=== PATIENT | male | born 1990 | race Caucasian/White ===

== ENCOUNTER 2016-11-04 04:57 | Emergency (ER) | payer OTHER ==
[~2016-11-04] VITALS: Ht 167.6 cm; Wt 61.1 kg
[2016-11-04] MEDS ORDERED: ALBU1.25 NEB (05:17)
[2016-11-04 05:59] LABS: BLOOD UREA NITROGEN 15 mg/dL (7-18)
[2016-11-04 06:03] LABS: IS PT STATUS REG ER OR PRE ER? YES
[2016-11-04 06:37] VITALS: BP 146/92
== END 2016-11-04 06:40 | disposition home or self-care (01) ==
LOC: ED 05:28
DX: R07.89 Other chest pain (principal)
CPT/HCPCS: 36415; 71010; 80048; 82040; 84436; 84443; 84484; 85025; 93005; 99285

== ENCOUNTER 2017-04-14 09:05 | Day surgery (SDC) | payer OTHER ==
[~2017-04-14] VITALS: Ht 167.6 cm; Wt 62.1 kg
[~2017-04-14 09:05] MED LIST: ALBU1.25 NEB; CEFAZOLIN 1,000 MG ONE; DEXAMETHASONE 4 MG/ML, 1ML ONE; FENTANYL PF 100 MCG/2ML ONE; GLYCOPYRROLATE 0.2MG/1ML, 5ML ONE; MIDAZOLAM 1 MG/ML, 2ML ONE; NEOSTIGMINE 1 MG/ML, 10ML ONE; ONDANSETRON 2MG/ML, 2ML ONE; PROPOFOL 10 MG/ML, 20ML ONE; ROCURONIUM 10 MG/ML,10ML ONE; SUCCINYLCHOLINE 20 MG/ML, 10ML ONE
[2017-04-14] MEDS ORDERED: EPINEPHRINE 1 MG/ML, 1ML ONE (09:18)
[2017-04-14] MEDS ORDERED: BUPIVACAINE/PF 0.5% ONE (09:18)
[2017-04-14] MEDS ORDERED: LIDOCAINE 1%, 2ML ONE (09:21)
[2017-04-14] MEDS ORDERED: LACTATED RINGERS 1,000 ML IV SCH (09:30)
[2017-04-14] MEDS ORDERED: ALBU18HF INH (09:30)
[2017-04-14] MEDS ORDERED: LIDOCAINE 1%, 2ML SQ PRN (09:30)
[2017-04-14 09:31] VITALS: BP 132/91
[2017-04-14] MEDS ORDERED: HYDROmorphone 1 MG/ML, 1ML ONE ×2 (10:36→11:38)
[2017-04-14] MEDS ORDERED: DEXAMETHASONE 4 MG/ML, 1ML ONE (10:36)
[2017-04-14] MEDS ORDERED: KETOROLAC 30 MG/1 ML ONE (10:36)
[2017-04-14] MEDS ORDERED: PROPOFOL 10 MG/ML, 20ML ONE (10:36)
[2017-04-14] MEDS ORDERED: SUCCINYLCHOLINE 20 MG/ML, 10ML ONE (10:36)
[2017-04-14] MEDS ORDERED: MIDAZOLAM 1 MG/ML, 2ML ONE (10:36)
[2017-04-14] MEDS ORDERED: CEFAZOLIN 1,000 MG ONE (10:36)
[2017-04-14] MEDS ORDERED: ROCURONIUM 10 MG/ML,10ML ONE (10:36)
[2017-04-14] MEDS ORDERED: ONDANSETRON 2MG/ML, 2ML ONE (10:36)
[2017-04-14] MEDS ORDERED: GLYCOPYRROLATE 0.2MG/1ML, 5ML ONE (10:36)
[2017-04-14] MEDS ORDERED: NEOSTIGMINE 1 MG/ML, 10ML ONE (10:36)
[2017-04-14] MEDS ORDERED: BUPIVACAINE/PF-EPI 0.5% 1:200K INFIL ONE (11:01)
[2017-04-14] MEDS ORDERED: hydrALAzine 20 MG/ML, 1ML IV PRN (11:30)
[2017-04-14] MEDS ORDERED: OXYcodone 5 MG/5 ML ORAL.SOL UDC PO PRN (11:30)
[2017-04-14] MEDS ORDERED: ONDANSETRON 2MG/ML, 2ML IVPush PRN (11:30)
[2017-04-14] MEDS ORDERED: METOPROLOL 1 MG/ML, 5ML IV PRN (11:30)
[2017-04-14] MEDS ORDERED: DIAZEPAM 5 MG/ML, 2ML IVPush PRN (11:30)
[2017-04-14] MEDS ORDERED: HYDROmorphone 1 MG/ML, 1ML IV PRN (11:30)
[2017-04-14] MEDS ORDERED: PROMETHAZINE 25 MG/ML, 1ML IV PRN (11:30)
[2017-04-14] MEDS ORDERED: EPHEDRINE 50 MG/ML, 1ML IVPush PRN (11:30)
[2017-04-14] MEDS ORDERED: FENTANYL PF 100 MCG/2ML IV PRN (11:30)
[2017-04-14] MEDS ORDERED: ACETAMINOPHEN 325 MG TABLET PO PRN (11:30)
[2017-04-14] MEDS ORDERED: MIDAZOLAM 1 MG/ML, 2ML IV PRN (11:30)
[2017-04-14] MEDS ORDERED: HYDROcodone/APAP 7.5-325MG/15ML UDC PO PRN (11:30)
[2017-04-14] MEDS ORDERED: LABETALOL 5MG/ML, 20ML IV PRN (11:30)
[2017-04-14] MEDS ORDERED: MEPERIDINE/PF 25MG/0.5ML IVPush PRN (11:30)
[2017-04-14] MEDS ORDERED: ALBUTEROL SULFATE 2.5 MG/3 ML NPPB PRN (11:30)
[2017-04-14] MEDS ORDERED: OXYcodone 5 MG/5 ML ORAL.SOL UDC ONE (12:08)
[2017-04-14] MEDS ORDERED: ACETAMINOPHEN 650 MG/20.3 ML UDC ONE (12:08)
[2017-04-14] MEDS ORDERED: MEPERIDINE/PF 50 MG/ML ONE (12:11)
[2017-04-14] MEDS ORDERED: OXYcodone/APAP 5/325MG TABLET ONE (16:13)
[2017-04-14] MEDS ORDERED: OXYcodone/APAP 5/325MG TABLET PO PRN (16:30)
== END 2017-04-14 16:25 ==
LOC: OUT 09:05
PROVIDERS: ATTEND Colon & Rectal Surgery
DX: K40.90 Unilateral inguinal hernia, without obstruction or gangrene, not specified as recurrent (principal); Z72.89 Other problems related to lifestyle; J45.909 Unspecified asthma, uncomplicated
CPT/HCPCS: 49650; C1727; C1781; J0171; J0330; J0690; J1100; J1170; J1885; J2175; J2250; J2405; J2704; J2710; J3010; J3490; J7120